=== PATIENT | male | born 1950 | race Caucasian/White ===

== ENCOUNTER 2018-04-11 06:50 | Inpatient (IN) | payer MEDICARE, BC ==
[2018-04-11] MEDS ORDERED: ACETAMINOPHEN 1000 MG/100 ML IVPB (07:00)
[2018-04-11] MEDS ORDERED: CEFAZOLIN 2 GM/50 ML (PMX) 50 ML IVPB ×2 (08:57→09:30)
[2018-04-11] MEDS ORDERED: MIDAZOLAM 1 MG/ML 2 ML INJ (09:04)
[2018-04-11] MEDS ORDERED: ROCURONIUM 50 MG INJ (09:04)
[2018-04-11] MEDS ORDERED: PROPOFOL 20 ML ×2 (09:04→09:27)
[2018-04-11] MEDS ORDERED: METOCLOPRAMIDE 10 MG INJ (09:04)
[2018-04-11] MEDS ORDERED: ONDANSETRON 4 MG INJ (09:04)
[2018-04-11] MEDS ORDERED: hydrALAzine 20 MG INJ (09:16)
[2018-04-11] MEDS ORDERED: HYDROmorphONE 2 MG/ML SYG (09:19)
[2018-04-11] MEDS: LACTATED RINGER'S 1,000 ML (ENTER RATE) IV* (09:30)
[2018-04-11] MEDS: LACTATED RINGER'S 1,000 ML IV* (09:30)
[2018-04-11] MEDS ORDERED: MEPERIDINE 25 MG INJ IV (10:00)
[2018-04-11] MEDS ORDERED: ONDANSETRON 4 MG INJ IV ×2 (10:00→12:00)
[2018-04-11] MEDS ORDERED: hydrALAzine 20 MG INJ IV (10:00)
[2018-04-11] MEDS ORDERED: LABETALOL HCL 20MG INJ IV (10:00)
[2018-04-11] MEDS ORDERED: HYDROmorphONE (0.2 MG/ML) 10ML SYG IV ×3 (10:00)
[2018-04-11] MEDS ORDERED: DIPHENHYDRAMINE 50 MG INJ IV (10:00)
[2018-04-11] MEDS: THROMBIN 5000 UNIT VIAL (10:15)
[2018-04-11] MEDS: POLYMYXIN/BACITRACIN 1L IRRIG (10:15)
[2018-04-11] MEDS: GELATIN SIZE 100 SPONGE (10:15)
[2018-04-11] MEDS: BUPIVACAINE 0.25% (MPF) 30 ML INJ (10:15)
[2018-04-11] MEDS ORDERED: EPHEDrine SULFATE 50 MG/5 ML SYG (11:03)
[2018-04-11] MEDS ORDERED: AL HYDROX/MG HYDROX/SIMETH 30 ML CUP PO (12:00)
[2018-04-11] MEDS ORDERED: TRIMETHOBENZAMIDE 100 MG/ML VIAL IM (12:00)
[2018-04-11] MEDS ORDERED: DIPHENHYDRAMINE 50 MG CAP PO (12:00)
[2018-04-11] MEDS ORDERED: ZOLPIDEM 5 MG TAB PO (12:00)
[2018-04-11] MEDS ORDERED: HYDROCODONE/APAP (5/325) TAB PO (12:00)
[2018-04-11] MEDS ORDERED: DIAZEPAM 5 MG/ML SYG IM (12:00)
[2018-04-11] MEDS ORDERED: ACETAMINOPHEN 325 MG TAB PO (12:00)
[2018-04-11] MEDS ORDERED: BETHANECHOL 25 MG TAB PO (12:00)
[2018-04-11] MEDS ORDERED: PROCHLORPERAZINE 10 MG TAB PO (12:00)
[2018-04-11] MEDS ORDERED: NACL 0.9% 3 ML SYG IV (12:00)
[2018-04-11] MEDS ORDERED: CEFAZOLIN 1 GM/50 ML (PMX) 50 ML IVPB (12:00)
[2018-04-11] MEDS ORDERED: DIAZEPAM 5 MG TAB PO (12:00)
[2018-04-11] MEDS ORDERED: NALOXONE (0.4 MG/ML) INJ IV (12:00)
[2018-04-11] MEDS ORDERED: CEPASTAT LOZENGE MT (12:00)
[2018-04-11] MEDS: HYDROmorphONE 0.2 MG/ML PCA IV (12:20)
[2018-04-11] MEDS ORDERED: clonAZEPAM 0.5 MG TAB PO (13:30)
[2018-04-11] MEDS: DEXTROSE 5%-0.45% NACL 1,000 ML IV ×3 (13:39→22:41)
[2018-04-11] MEDS: CEFAZOLIN 1 GM/50 ML (PMX) 50 ML IVPB ×2 (14:57→20:29)
[2018-04-11] MEDS: ROSUVASTATIN CALCIUM 40 MG TABLET PO (20:29)
[2018-04-11] MEDS: FISH OIL 1,000 MG CAP PO (20:36)
[2018-04-11] MEDS: RANITIDINE 150 MG TAB PO (20:37)
[2018-04-11] MEDS: METOPROLOL 25 MG TAB PO ×2 (20:40→20:55)
[2018-04-12] MEDS: CEFAZOLIN 1 GM/50 ML (PMX) 50 ML IVPB ×2 (03:19→09:00)
[2018-04-12] MEDS: PANTOPRAZOLE (EC) 40 MG TAB PO (06:00)
[2018-04-12 06:02] LABS: HEMATOCRIT 40.3 % (42.0-52.0)
[2018-04-12 06:38] LABS: ANION GAP 11 (8-16); BLOOD UREA NITROGEN 8 mg/dl (7-20); CALCIUM 8.3 mg/dl (8.4-10.2); CARBON DIOXIDE 30 mmol/L (21-31); CHLORIDE 102 mmol/L (97-110); CREATININE 0.79 mg/dl (0.61-1.24); GLUCOSE 122 mg/dl (70-220); POTASSIUM 4.3 mmol/L (3.5-5.1); SODIUM 139 mmol/L (135-144)
[2018-04-12] MEDS: DEXTROSE 5%-0.45% NACL 1,000 ML IV (07:21)
[2018-04-12] MEDS: COLCHICINE 0.6 MG TAB PO (08:58)
[2018-04-12] MEDS: TESTOSTERONE 1% GEL 5 GM PACKET TOP (08:59)
[2018-04-12] MEDS: DOCUSATE SODIUM 100 MG CAP PO (09:01)
[2018-04-12] MEDS: ASCORBIC ACID 500 MG TAB PO (09:02)
[2018-04-12] MEDS: RANITIDINE 150 MG TAB PO (09:02)
[2018-04-12] MEDS: FISH OIL 1,000 MG CAP PO ×2 (09:02→13:00)
[2018-04-12] MEDS: BETHANECHOL 25 MG TAB PO ×2 (09:02→13:00)
[2018-04-12] MEDS: FERROUS SULFATE (EC) 325 MG TAB PO ×2 (09:02→13:00)
[2018-04-12] MEDS: LISINOPRIL 10 MG TAB PO (09:03)
[2018-04-12] MEDS: HYDROCODONE/APAP (5/325) TAB PO ×2 (09:04→13:00)
[2018-04-12] MEDS: METOPROLOL 25 MG TAB PO (09:04)
[2018-04-12 10:04] LABS: ADD UMIC YES; UR ASCORBIC ACID 20 mg/dL (NEGATIVE); UR BILIRUBIN (Dip) NEGATIVE (NEGATIVE); UR BLOOD (Dip) NEGATIVE (NEGATIVE); UR CLARITY CLEAR (CLEAR); UR COLOR YELLOW (YELLOW); UR GLUCOSE (Dip) NEGATIVE (NEGATIVE); UR KETONES (Dip) NEGATIVE (NEGATIVE); UR LEUKOCYTE ESTERASE (Dip) TRACE Leu/ul (NEGATIVE); UR NITRITE (Dip) NEGATIVE (NEGATIVE); UR RBC 12 /HPF (0-5); UR SPECIFIC GRAVITY (Dip) 1.014 (1.003-1.030); UR TOTAL PROTEIN (Dip) NEGATIVE (NEGATIVE); UR UROBILINOGEN (Dip) NEGATIVE (NEGATIVE); UR WBC 2 /HPF (0-5)
[2018-04-12] MEDS ORDERED: TAMSULOSIN (SR) 0.4 MG CAP PO (21:00)
== END 2018-04-12 15:45 | disposition home or self-care (01) | DRG 520 ==
LOC: REC 06:50 → MS1 13:02
PROC: 0SB20ZZ Excision of Lumbar Vertebral Disc, Open Approach (ICD-10-PCS; principal; 2018-04-11 09:07)
PROC: 01NB0ZZ Release Lumbar Nerve, Open Approach (ICD-10-PCS; 2018-04-11 09:07)
DX: M48.061 Spinal stenosis, lumbar region without neurogenic claudication (principal); M51.26 Other intervertebral disc displacement, lumbar region; E78.5 Hyperlipidemia, unspecified; I10 Essential (primary) hypertension; M10.9 Gout, unspecified; K21.9 Gastro-esophageal reflux disease without esophagitis; N40.0 Benign prostatic hyperplasia without lower urinary tract symptoms; Z95.1 Presence of aortocoronary bypass graft; Z79.82 Long term (current) use of aspirin; Z95.2 Presence of prosthetic heart valve
CPT/HCPCS: 72020; 80048; 81001; 85014; 85018; 86850; 86900; 86901; 86920; 87086; 88304; 88311; 97110; 97116; 97161